=== PATIENT | female | born 1955 | race Two or more races ===

== ENCOUNTER 2021-07-09 10:47 | Outpatient (CLI) | payer OTHER | END 2021-07-09 10:51 | disposition home or self-care (01) | LOC: SONOGRAMA 10:47 | PROVIDERS: ATTEND Pathology Anatomic Pathology & Clinical Pathology | DX: D34 Benign neoplasm of thyroid gland (principal); E04.8 Other specified nontoxic goiter; C73 Malignant neoplasm of thyroid gland ==